=== PATIENT | male | born 1950 | race Caucasian/White ===

== ENCOUNTER → 2016-12-07 | Outpatient (CLI) | payer MEDICARE, BC ==
[~2016-12-07] MED LIST: ASA CHILDREN'S81 MG PO; BRILINTA90 MG PO; COREG DPS3.125 MG PO; DEMADEX20 MG PO; LIPITOR DPS20 MG PO; LIPITOR DPS40 MG PO; MICRO-K DPS10 MEQ PO; MILRINONE IV; MYSOLINE50 MG PO; NITROSTAT0.4 MG SL; NORCO 5-325 TA1 EACH PO; OMEGA-3 DPS1000 MG PO; OSTEO BI-FLEX1 EAC2 PO; PAXIL DPS20 MG PO; REGLAN-DPS10 MG PO; ZESTRIL DPS10 MG PO
== END | disposition home or self-care (01) ==
LOC: RAD.S 09:45
DX: R11.10 Vomiting, unspecified (principal); R07.9 Chest pain, unspecified; J90 Pleural effusion, not elsewhere classified; K59.00 Constipation, unspecified; Z98.890 Other specified postprocedural states